=== PATIENT | male | born 1980 | race Caucasian/White ===

== ENCOUNTER → 2022-11-01 13:57 | Outpatient (CLI) | payer OTHER, SELFPAY ==
--- NOTE | 2022-11-01 | DI.US.S_ITS ---
PROCEDURE: US CHEST COMPARISON: [place], [place], PET/CT SKULL BASE TO MID THIGH, 09/06/2013, 9:15. INDICATIONS: LOCALIZED SWELLING, MASS AND LUMP. Palpable non-painful lump in the region of the xiphoid process for approximately 6 months, noticed after significant weight loss. Prior history of oral squamous cell carcinoma FINDINGS: At the patient indicated area of clinical concern, the epigastric region, the xiphoid process is visualized corresponding to the palpable finding. There is possible circumscribed appearance of adjacent soft tissue, which could represent prominent fat or muscle, less likely an underlying mass. Approximate dimensions of this region are 2.9 x 1.1 x 2.5 cm. IMPRESSION: The xiphoid process is visualized at the patient indicated palpable lump and appears to correspond to the palpable finding. There is possible circumscribed appearance of adjacent soft tissue, which could represent prominent fat or muscle, less likely an underlying mass. Clinical follow-up is recommended and if indicated, such as an increase in size of the palpable finding or development of symptoms such as pain, repeat sonographic evaluation or other imaging such as CT could be obtained. Dictated by: Chavez Florez M.D. on 11/01/2022 at 17:10 Approved by: Chavez Florez M.D. on 11/01/2022 at 17:17
== END ==
PROVIDERS: Referring Provider Family Medicine; Visit Provider Family Medicine
DX: R22.2 Localized swelling, mass and lump, trunk (principal)
CPT/HCPCS: 76604